=== PATIENT | male | born 1945 | race Caucasian/White ===

== ENCOUNTER → 2018-02-23 | Outpatient (CLI) | payer OTHER, MEDICARE ==
[~2018-02-23] MED LIST: IOPAMIDOL (ISOVUE-370) 150 ML BTL IV ONE
== END ==
LOC: FIMAGING 07:50
PROVIDERS: ATTEND Physician Assistant Surgical
DX: L97.821 Non-pressure chronic ulcer of other part of left lower leg limited to breakdown of skin (principal); E11.621 Type 2 diabetes mellitus with foot ulcer; R22.42 Localized swelling, mass and lump, left lower limb; L53.9 Erythematous condition, unspecified
CPT/HCPCS: 75635; 93970; Q9967

== ENCOUNTER → 2019-04-29 | Outpatient (CLI) | payer OTHER, MEDICARE | LOC: CIMAGING 16:49 ==